=== PATIENT | male | born 1980 | race Caucasian/White ===

== ENCOUNTER 2017-09-16 11:47 | Emergency (ER) | payer SELFPAY ==
[~2017-09-16] VITALS: Ht 167.6 cm; Wt 222.7 kg
[~2017-09-16 11:47] MED LIST: ATOXIMETIN-B1 CAP PO; CARAFATE1 GM PO; FISH OIL1 POW; NEXIUM 40MG40 MG PEG; RANITIDINE150 MG PO
[2017-09-16 12:02] VITALS: BP 164/78; TEMP 98.9
[2017-09-16] MEDS ORDERED: PRINZIDE 25 MG-1 TAB PO (12:14)
[2017-09-16] MEDS ORDERED: NORCO 325 MG-51 TAB PO (12:45)
[2017-09-16 12:53] VITALS: PULSE 91
== END 2017-09-16 12:53 | disposition home or self-care (01) ==
LOC: COL.ER 11:47
DX: S20.211A Contusion of right front wall of thorax, initial encounter (principal); K21.9 Gastro-esophageal reflux disease without esophagitis; E66.01 Morbid (severe) obesity due to excess calories; Z68.45 Body mass index [BMI] 70 or greater, adult; W01.0XXA Fall on same level from slipping, tripping and stumbling without subsequent striking against object, initial encounter

== ENCOUNTER → 2018-04-30 | Outpatient (CLI) | payer OTHER ==
[~2018-04-30] MED LIST changes: +NORCO 325 MG-51 TAB PO; +PRINZIDE 25 MG-1 TAB PO
== END ==
LOC: COL.PUL 10:53
DX: Z02.71 Encounter for disability determination (principal); Z87.891 Personal history of nicotine dependence